=== PATIENT | female | born 1965 | race Caucasian/White ===

== ENCOUNTER → 2018-11-30 | Outpatient (CLI) | payer BC ==
[~2018-11-30] MED LIST: ALDACTONE 25MG25 M1 PO; ATOXIMETIN-B1 CAP PO; BEE POLLEN PO; BUPROBAN150 MG PO; CARDI-OMEGA1000 MG PO; CELEBREX 200MG200 MG PO; CELEXA 20MG20 MG/TAB PO; CORAL CALCIUM185 MG PO; D3-5050000 IU PO; GINKGO; GLUCOSAMINE & C1 CAP PO; INDOMETHACIN; MICARDIS HCT 121 TA1 PO; MULTI VITAMINS1 TAB PO; NEXIUM PO; TIROSINT50 MC1 PO; VITAMINC1000TA PO
== END ==
LOC: MC.RAD 11:20
DX: Z12.31 Encounter for screening mammogram for malignant neoplasm of breast (principal)

== ENCOUNTER → 2020-06-29 | Outpatient (CLI) | payer BC | LOC: MC.RAD 06-12 08:30 | DX: Z12.31 Encounter for screening mammogram for malignant neoplasm of breast (principal) ==

== ENCOUNTER 2021-08-25 11:55 | Inpatient (IN) | payer BC ==
[~2021-08-25] VITALS: Ht 154.9 cm; Wt 147.2 kg
[2021-09-08] VITALS (131 sets, daily range): BP systolic 114–138; BP diastolic 53–83; PULSE 58–71; TEMP 97.9–98.4; O2SAT 94–99
[2021-09-08] MEDS ORDERED: NORVASC 5MG5 MG/TAB PO (11:51)
[2021-09-08] MEDS ORDERED: TYLENOL PM EXTR1 TA1 PO (11:51)
[2021-09-08] MEDS ORDERED: TYLENOL 500MG500 MG PO (11:51)
[2021-09-08 17:55] LABS: BASO % 0.3 % (0.0-2.0); EOS % 0.3 % (0-4.0); GRAN # 9.3 K/mm3 (1.4-6.5); GRAN % 88.6 % (42.2-75.2); HEMATOCRIT 40.6 % (37.0-47.0); HEMOGLOBIN 13.5 g/dl (12.5-16.0); LYMPH # 0.7 K/mm3 (1.2-3.4); MEAN CELL VOLUME 89 fl (80.0-100.0); MEAN CORPUSCULAR HEMOGLOBIN 29 pg (27.0-31.0); MEAN CORPUSCULAR HGB CONC 33 g/dl (33.0-37.0); MEAN PLATELET VOLUME 10.2 fl (7.4-10.4); MONO # 0.4 K/mm3 (0.1-0.6); MONO % 3.5 % (1.7-9.3); PLATELET COUNT 219 K/mm3 (130-400); RED BLOOD COUNT 4.59 M/mm3 (4.10-5.30); REDCELL DISTRIBUTION WIDTH-CV 12.5 % (11.5-14.5)
--- NOTE | 2021-09-08 19:05 | NUR ---
PT ARRIVED FROM PACU. PT IS ORIENTED X4 BUT SLEEPY. VSS. PT SHOWING SR ON TELE. PT ORIENTED TO ROOM AND FLOOR. PT HAS 5 LAP SITES C/D/I. DIEGO DRAIN WITH SEROSANGINOUS DRAINAGE. MATHEW IN PLACE. PT IS NPO. 191- REPORT GIVEN TO JULIEN RUIZ.
--- NOTE | 2021-09-08 20:30 | NUR ---
Patient resting in bed. Assessment complete and charted. x5 lap sites CDI with site CDI. PHYSIOTHERAPY PRACTICE MANAGER pump set up with SARA Epps to verify. Denies other needs at this time. Call light in reach.
[2021-09-09] VITALS (299 sets, daily range): BP systolic 124–150; BP diastolic 50–80; PULSE 56–70; TEMP 97.7–98.9; O2SAT 90–100
[2021-09-09 00:57] LABS: CALCIUM 9.4 mg/dL (8.4-10.2); CREATININE, serum 1.16 mg/dL (0.57-1.11); POTASSIUM 4.7 mmol/L (3.5-4.5)
--- NOTE | 2021-09-09 07:00 | NUR ---
PT RESTING IN BED. 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 PT IS NPO. PT TO HAVE BARRIUM SWALLOW THIS AM.
--- NOTE | 2021-09-09 07:12 | NUR ---
Patient nauseated this AM. Given zofran. Remained NPO and on TERMINATION CLERK during night. Resting in bed this AM. Call light in reach. Report given to Vita RUIZ
--- NOTE | 2021-09-09 08:56 | NUR ---
0800- PT DOWN TO XRAY FOR SWALLOW STUDY. 0830- PT BACK TO ROOM.
--- NOTE | 2021-09-09 09:57 | NUR ---
Group Exercise Instructor met with patient to complete intake. Patient reports she and her , Yasmani ([id number]), live in [place], in a house with 3 steps to enter, 12 steps to 2nd level of home. Patient reports she is fully independent with ADLS and has no DME's or home 02 to assist her. PCP is Dr. Fonseca and she obtains medications from [facility] with no difficulty. Patient states she does not have an MPOA but is interested in completing one. This worker provide form to patient and will return to complete POA once patient is more alert.
[2021-09-09 10:09] LABS: ALBUMIN 3.5 gm/dL (3.5-5.0); BILIRUBIN,TOTAL 0.3 mg/dL (0.2-1.2); CALCIUM 9.5 mg/dL (8.4-10.2); CREATININE, serum 0.99 mg/dL (0.57-1.11); POTASSIUM 4.8 mmol/L (3.5-4.5); TOTAL PROTEIN 7.2 gm/dL (6.2-8.1)
--- NOTE | 2021-09-09 11:25 | NUR ---
CALLED AND ASKED ABOUT TRANSFER OUT OF ICU TO SURGICAL. PER DR. SINGH OK TO TRANSFER. WILL DC CHEF DE PARTIE, ORDER NORCO, AND OK TO START ON CLEAR LIQUIDS.
--- NOTE | 2021-09-09 11:26 | NUR ---
ATTEMPTED TO CALL REPORT TO VIVI RUIZ. BUSY AT THIS TIME WILL TRY AGAIN IN A FEW.
--- NOTE | 2021-09-09 11:40 | NUR ---
REPORT CALLED TO VIVI RUIZ. ALL QUESITONS ANSWERED. PT TRANSPORT PT UP TO ROOM 330.
[2021-09-10] VITALS: BP 128/58; PULSE 69; TEMP 97.8
[2021-09-10 05:17] VITALS: BP 122/58; PULSE 80; TEMP 98.1
[2021-09-10 08:00] VITALS: BP 146/69; PULSE 64; TEMP 97.8
[2021-09-10 08:30] LABS: BASO % 0.2 % (0.0-2.0); EOS % 0.1 % (0-4.0); GRAN # 7.6 K/mm3 (1.4-6.5); GRAN % 77.5 % (42.2-75.2); HEMATOCRIT 39.3 % (37.0-47.0); HEMOGLOBIN 12.8 g/dl (12.5-16.0); LYMPH # 1.3 K/mm3 (1.2-3.4); LYMPH % 12.9 % (20.0-51.0); MEAN CELL VOLUME 91 fl (80.0-100.0); MEAN CORPUSCULAR HEMOGLOBIN 30 pg (27.0-31.0); MEAN CORPUSCULAR HGB CONC 33 g/dl (33.0-37.0); MEAN PLATELET VOLUME 10.5 fl (7.4-10.4); MONO # 0.9 K/mm3 (0.1-0.6); PLATELET COUNT 215 K/mm3 (130-400); RED BLOOD COUNT 4.33 M/mm3 (4.10-5.30); REDCELL DISTRIBUTION WIDTH-CV 12.7 % (11.5-14.5)
--- NOTE | 2021-09-10 08:32 | NUR ---
Pt on clear liquids. no breakfast eaten.
[2021-09-10 08:43] LABS: ALBUMIN 3.2 gm/dL (3.5-5.0); BILIRUBIN,TOTAL 0.3 mg/dL (0.2-1.2); CALCIUM 9.1 mg/dL (8.4-10.2); CREATININE, serum 0.83 mg/dL (0.57-1.11); POTASSIUM 4.2 mmol/L (3.5-4.5); TOTAL PROTEIN 6.5 gm/dL (6.2-8.1)
--- NOTE | 2021-09-10 09:17 | NUR ---
Dr. Au called, reported labs. Plan of care reviewed. Patient up to the chair this am. Nausea managed, reports understanding of diet. Spoke to Multimedia Manager yesterday. Iv to Int. Vitals stable & all am medications given.
--- NOTE | 2021-09-10 09:36 | NUR ---
Pt in recliner at this time. Nurse and this student assisted pt to recliner. PT using incentive spirometer while up in recliner at this time.
--- NOTE | 2021-09-10 11:30 | NUR ---
Patient was up to the bathroom & voided without troubles. She reprots this is the first time since martin removal. Patient reprots headache. Voicemail let for to get a tylenol order. Patient did not want [place].
[2021-09-10 12:40] VITALS: BP 134/61; PULSE 59; TEMP 98.1
--- NOTE | 2021-09-10 13:03 | NUR ---
Doctor ordered DIEGO removal. Dressing removd suture cut and pulled. Covered with sterile 4x4 and covered with tegaderm. Pt tolerated well.
[2021-09-10 14:54] VITALS: BP 123/52; PULSE 59; TEMP 98.6
[2021-09-10] MEDS ORDERED: NORCO 325 MG-51 TAB PO (15:15)
[2021-09-10] MEDS ORDERED: ZOFRAN 4MG T4 MG/TAB PO (15:15)
--- NOTE | 2021-09-10 16:01 | NUR ---
Patient ready for discharge. Her daughter here to take her home. Patient tolerated few bites of jello & applesauce. Denies nausea today. Pain managed with tyelnol. She verbalized understanding of diet & follow up appt. we reviewed incision cares & activity restrictions. Patient verbalized understanding & importance of calling with any questions or concerns.
== END 2021-09-10 16:07 | disposition home or self-care (01) | DRG 621 ==
LOC: SURG 09-08 10:24 → INPTSU 09-08 10:24 → SURG 09-08 12:30 → ICU 09-08 19:00 → INPTSU 09-08 19:32 → ICU 09-08 19:32 → SURG 09-09 11:57
PROVIDERS: Internal Medicine Pulmonary Disease; ADMIT Surgery
PROC: 0D164ZA Bypass Stomach to Jejunum, Percutaneous Endoscopic Approach (ICD-10-PCS; principal; 2021-09-08 12:30)
DX: E66.01 Morbid (severe) obesity due to excess calories (principal); Z68.44 Body mass index [BMI] 60.0-69.9, adult
CPT/HCPCS: A4314; A9284; C9113; J0461; J0690; J1100; J1170; J1650; J1885; J1956; J2405; J2704; J3010; J3480; J7040; J7120

== ENCOUNTER → 2022-08-10 | Outpatient (CLI) | payer BC ==
[~2022-08-10] MED LIST changes: +NORCO 325 MG-51 TAB PO; +NORVASC 5MG5 MG/TAB PO; +TYLENOL 500MG500 MG PO; +TYLENOL PM EXTR1 TA1 PO; +ZOFRAN 4MG T4 MG/TAB PO
== END ==
LOC: MC.RAD 14:53
DX: Z12.31 Encounter for screening mammogram for malignant neoplasm of breast (principal)

== ENCOUNTER → 2024-01-31 | Outpatient (CLI) | payer BC | LOC: MC.RAD 12:39 | DX: Z12.31 Encounter for screening mammogram for malignant neoplasm of breast (principal) ==